=== PATIENT | female | born 1995 | race Caucasian/White ===

== ENCOUNTER 2019-12-08 19:41 | Inpatient (IN) | payer MEDICAID ==
[~2019-12-08] VITALS: Ht 160 cm; Wt 83.9 kg
[2019-12-08 19:51] VITALS: Ht 160 cm; Wt 83.9 kg
[2019-12-08 21:27] LABS: CALCIUM 8.6 mg/dL (8.5-10.1); CARBON DIOXIDE 23.8 mmol/L (21-32); CHLORIDE SERUM 103 mmol/L (98-107); CREATININE SERUM 0.7 mg/dL (0.6-1.0); GFR1 > 60 mL/min; GLUCOSE SERUM 90 mg/dL (74-106); POTASSIUM SERUM 3.5 mmol/L (3.5-5.1); SODIUM SERUM 139 mmol/L (136-145)
[2019-12-08 21:32] LABS: ALBUMIN 2.7 g/dL (3.4-5.0); ALKALINE PHOSPHATASE 223 U/L (46-116); ALT/SGPT 88 U/L (14-59); AST/SGOT 36 U/L (15-37); BILIRUBIN TOTAL 1.4 mg/dL (0.20-1.00); TOTAL PROTEIN, SERUM 5.5 g/dL (6.4-8.2)
[2019-12-08 21:33] LABS: PLATELET COUNT 192 x10^3mcL (130-400)
[2019-12-08 21:34] LABS: RED CELL DISTRIBUTION WIDTH 15.1 % (11.5-14.5)
[2019-12-08 22:00] LABS: BAND NEUTROPHIL 10 % (0-10); MONOCYTE 8 % (0-7); SEGMENTED NEUTROPHILS 42 % (37-75)
[2019-12-08 22:02] LABS: rbc morphology (normal/abnorm) ABNORMAL (NORMAL)
[2019-12-08] MEDS ORDERED: ZOVIRAX400 MG PO (23:18)
[2019-12-08] MEDS ORDERED: ZYLOPRIM300 MG PO (23:18)
[2019-12-08] MEDS ORDERED: AMICAR PO (23:21)
[2019-12-08] MEDS ORDERED: DULCOLAX5 M1 PO (23:22)
[2019-12-08] MEDS ORDERED: NORCO1 TA2 PO (23:23)
[2019-12-08] MEDS ORDERED: ATIVAN1 MG PO (23:24)
[2019-12-08] MEDS ORDERED: GOOD NEIGHBOR M25 MG PO (23:26)
[2019-12-08] MEDS ORDERED: PROV10 PO (23:27)
[2019-12-08] MEDS ORDERED: ZOF20I PO (23:29)
[2019-12-08] MEDS ORDERED: PANTOPRAZOLE SO20 M1 PO (23:30)
[2019-12-08] MEDS ORDERED: RIZATRIPTAN BENZ5 MG PO (23:32)
[2019-12-08] MEDS ORDERED: URSO FORTE500 MG PO (23:34)
[2019-12-08 23:47] LABS: TOTAL PROTEIN CSF 40 mg/dL (15-45)
[2019-12-08 23:49] LABS: APPEARANCE CSF CLEAR; COLOR CSF COLORLESS
[2019-12-08 23:50] LABS: APPEARANCE CSF CLEAR; COLOR CSF COLORLESS
[2019-12-09] VITALS (8 sets, daily range): BP systolic 86–115; BP diastolic 42–69
[2019-12-09 00:08] LABS: RBC CSF 4 /cumm (0); WBC CSF 2 /cumm (0-5)
[2019-12-09 00:13] LABS: RBC CSF 3 /cumm (0); WBC CSF 1 /cumm (0-5)
[2019-12-09 01:48] LABS: FREE T4 1.35 ng/dL (0.76-1.46); FREE THYROXINE INDEX 2.1 ug/dL (1.4-4.5); T4(THYROXINE) 4.9 ug/dL (4.7-13.3)
[2019-12-09 01:50] LABS: T3 TOTAL 0.84 ng/mL
[2019-12-09 01:54] LABS: CHOLESTEROL/HDL RATIO 11.5
[2019-12-09 06:54] LABS: CALCIUM 8.7 mg/dL (8.5-10.1); CARBON DIOXIDE 24.2 mmol/L (21-32); CHLORIDE SERUM 102 mmol/L (98-107); CREATININE SERUM 0.8 mg/dL (0.6-1.0); GFR1 > 60 mL/min; GLUCOSE SERUM 85 mg/dL (74-106); POTASSIUM SERUM 4.2 mmol/L (3.5-5.1); SODIUM SERUM 135 mmol/L (136-145)
[2019-12-09 07:30] LABS: PLATELET COUNT 245 x10^3mcL (130-400)
[2019-12-09 13:59] LABS: BAND NEUTROPHIL 30 % (0-10); MONOCYTE 24 % (0-7); SEGMENTED NEUTROPHILS 27 % (37-75); rbc morphology (normal/abnorm) NORMAL (NORMAL)
[2019-12-09 14:00] LABS: PLATELET MORPHOLOGY PLATELETS NORMAL
[2019-12-10 03:47] LABS: UA SPECIFIC GRAVITY <=1.005 (1.005-1.035); microscopic required? YES; urine erythrocyte 3+ (NEGATIVE)
[2019-12-10 04:00] LABS: AMPHETAMINE QUAL UR NONE DETECTED (See below)
[2019-12-10 05:50] VITALS: BP 104/56
[2019-12-10 06:08] LABS: PLATELET COUNT 250 x10^3mcL (130-400)
[2019-12-10 06:41] LABS: ALKALINE PHOSPHATASE 211 U/L (46-116); ALT/SGPT 84 U/L (14-59); AST/SGOT 48 U/L (15-37); BILIRUBIN TOTAL 1.6 mg/dL (0.20-1.00); CARBON DIOXIDE 21.8 mmol/L (21-32); CHLORIDE SERUM 102 mmol/L (98-107); CREATININE SERUM 0.9 mg/dL (0.6-1.0); GFR1 > 60 mL/min; GLUCOSE SERUM 107 mg/dL (74-106); MAGNESIUM 1.8 mg/dL (1.8-2.4); PHOSPHOROUS 4.2 mg/dL (2.5-4.9); POTASSIUM SERUM 3.9 mmol/L (3.5-5.1); SODIUM SERUM 136 mmol/L (136-145)
[2019-12-10 06:43] LABS: ALBUMIN 2.4 g/dL (3.4-5.0); TOTAL PROTEIN, SERUM 5.1 g/dL (6.4-8.2)
[2019-12-10 07:35] LABS: RED CELL DISTRIBUTION WIDTH 15.4 % (11.5-14.5)
[2019-12-10 07:55] VITALS: BP 96/53
[2019-12-10 11:15] LABS: BAND NEUTROPHIL 25 % (0-10); MONOCYTE 18 % (0-7); SEGMENTED NEUTROPHILS 35 % (37-75)
[2019-12-10 11:16] LABS: rbc morphology (normal/abnorm) NORMAL (NORMAL)
[2019-12-10 12:35] VITALS: BP 102/63
[2019-12-10 17:47] VITALS: BP 102/59
[2019-12-10 21:38] VITALS: BP 95/60
[2019-12-11 05:46] VITALS: BP 101/61
[2019-12-11 06:27] LABS: PLATELET COUNT 203 x10^3mcL (130-400)
[2019-12-11 06:48] LABS: CALCIUM 7.7 mg/dL (8.5-10.1); CARBON DIOXIDE 21.7 mmol/L (21-32); CHLORIDE SERUM 105 mmol/L (98-107); CREATININE SERUM 0.7 mg/dL (0.6-1.0); GFR1 > 60 mL/min; GLUCOSE SERUM 93 mg/dL (74-106); MAGNESIUM 1.7 mg/dL (1.8-2.4); POTASSIUM SERUM 3.4 mmol/L (3.5-5.1); SODIUM SERUM 138 mmol/L (136-145)
[2019-12-11 07:18] LABS: RED CELL DISTRIBUTION WIDTH 15.5 % (11.5-14.5)
[2019-12-11 08:53] VITALS: BP 109/60
[2019-12-11 11:08] LABS: BAND NEUTROPHIL 26 % (0-10); BASOPHIL 0 % (0-2); MONOCYTE 6 % (0-7); SEGMENTED NEUTROPHILS 60 % (37-75)
[2019-12-11 11:09] LABS: PLATELET MORPHOLOGY LARGE PLATELET SEEN; rbc morphology (normal/abnorm) ABNORMAL (NORMAL)
[2019-12-11 11:41] VITALS: BP 100/56
[2019-12-11 16:22] VITALS: BP 105/66
[2019-12-11 21:40] VITALS: BP 106/68
[2019-12-12 06:39] VITALS: BP 96/68
[2019-12-12 07:16] LABS: CHLORIDE SERUM 106 mmol/L (98-107); CREATININE SERUM 0.9 mg/dL (0.6-1.0); GFR1 > 60 mL/min; GLUCOSE SERUM 99 mg/dL (74-106); POTASSIUM SERUM 3.3 mmol/L (3.5-5.1); SODIUM SERUM 141 mmol/L (136-145)
[2019-12-12 07:34] LABS: BASOPHIL % 0.5 % (0-2); PLATELET COUNT 285 x10^3mcL (130-400)
[2019-12-12 08:36] LABS: RED CELL DISTRIBUTION WIDTH 15.8 % (11.5-14.5)
[2019-12-12 08:50] VITALS: BP 102/67
[2019-12-12 13:19] VITALS: BP 102/67
== END 2019-12-12 16:25 | disposition home or self-care (01) | DRG 721 ==
LOC: ED 19:41 → DU 12-09 00:26
PROVIDERS: Emergency Medicine; ADMIT Internal Medicine
DX: T80.211A Bloodstream infection due to central venous catheter, initial encounter (principal); G92 Toxic encephalopathy; C91.00 Acute lymphoblastic leukemia not having achieved remission; E44.0 Moderate protein-calorie malnutrition; A41.9 Sepsis, unspecified organism; D70.1 Agranulocytosis secondary to cancer chemotherapy; E80.6 Other disorders of bilirubin metabolism; R74.0 Nonspecific elevation of levels of transaminase and lactic acid dehydrogenase [LDH]; D64.9 Anemia, unspecified; E78.1 Pure hyperglyceridemia; D64.81 Anemia due to antineoplastic chemotherapy; Z68.32 Body mass index [BMI] 32.0-32.9, adult
CPT/HCPCS: 84439; 87804; A9577; G0378; J0696; J1200; J1442; J1630; J1644; J2060; J2185; J2405; J2543; J3370; J3490; J7030; J7060; Q0092